=== PATIENT | female | born 1995 | race Caucasian/White ===

== ENCOUNTER 2017-02-16 09:18 | Emergency (ER) | payer SELFPAY ==
[2017-02-16] MEDS ORDERED: Lorazepam 2 MG/ML VIAL ONE (09:26)
[2017-02-16 10:47] LABS: #Basophils 0.1 thou/uL (0.0-0.2); #Lymphocytes 2.1 thou/uL (1.20-3.40); #Monocytes 0.7 thou/uL (0.11-0.59); #Neutrophils 9.6 thou/uL (1.40-6.50); %Basophils 0.8 % (0.0-1.0); %Eosinophils 0.2 % (0.0-10.0); %Lymphocytes 16.5 % (28.0-48.0); %Monocytes 5.5 % (0.0-4.0); Hematocrit 42.9 % (36.0-47.0); Mean Platelet Volume 7.1 fL (7.4-10.4); Red Blood Cell (RBC) Count 4.84 mill/uL (4.00-5.20); White Blood Cell (WBC) Count 12.4 thou/uL (4.8-10.8)
[2017-02-16 11:02] LABS: Acetaminophen Less than 6.0 mcg/mL (10.0-30.0); CK (CPK) 209 U/L (29-168); Salicylate Less than 8.0 mg/dL (15.0-30.0)
[2017-02-16 11:04] LABS: ALT (SGPT) 14 U/L (8-55); AST (SGOT) 16 U/L (5-34); Alkaline Phosphatase 92 U/L (40-150); Anion Gap 17 mmol/L (10-20); BUN (Urea Nitrogen) 10 mg/dL (7.0-18.7); Bilirubin, Total 0.6 mg/dL (0.2-1.2); Calc. Creatinine Clearance 0 mL/min (70-130); Carbon Dioxide 21 mmol/L (22-29); Chloride 106 mmol/L (98-107); Estimated GFR-MDRD 90; Globulin 3.2 g/dL (2.4-3.5); Lipase 12 U/L (8-78); Protein, Total 7.8 g/dL (6.0-8.3)
[2017-02-16 11:37] LABS: Bilirubin Small (Negative); Blood, Urine Large (Negative); Glucose, Urine (Dipstick) Negative (Negative); Ketone, Urine 15 mg/dL (Negative); Nitrite Negative (Negative); Protein, Urine (Dipstick) 100 mg/dL (Neg-Trace)
[2017-02-16 11:39] LABS: Bacteria/HPF 4+ HPF (None Seen); RBC/HPF GREATER THAN 50-TNTC HPF (0-3); Squamous Epithelial 0-3 HPF (0-3)
[2017-02-16 11:43] LABS: Hyaline Casts/LPF 0-3 HYALINE CAST LPF (0-3 Hyaline)
[2017-02-16 11:45] LABS: Amphetamine Detected (NotDetected); Methadone Not Detected (NotDetected); Methamphetamine Detected (NotDetected)
== END 2017-02-16 15:44 | disposition home or self-care (01) ==
LOC: EDBD 09:18 → ERS 09:18
DX: F16.10 Hallucinogen abuse, uncomplicated (principal); N39.0 Urinary tract infection, site not specified
CPT/HCPCS: 51701; 80053; 80306; 80307; 81003; 81015; 82550; 83690; 84703; 85025; 96360; 96372; A4353; J2060